=== PATIENT | female | born 2000 | race Caucasian/White ===

== ENCOUNTER 2022-02-23 09:39 | Outpatient (REF) | payer MEDICAID, SELFPAY ==
[2022-02-23 11:17] LABS: HBsAGNum1 0.21 S/CO (0.00-0.99); HIV AB/AG Nonreactive (Nonreactive); HIV Num 1 0.12 S/CO (0.00-0.99); Hepatitis B Surface Antigen Negative (Negative); ~HepC Num1 0.09 S/CO (0.00-0.79); ~Hepatitis C Antibody Nonreactive (Nonreactive)
[2022-02-23 12:40] LABS: Syphilis Screen Nonreactive (Nonreactive)
[2022-02-23 13:53] LABS: CT PCR NOT DETECTED (Not Detect.); NG PCR NOT DETECTED (Not Detect.)
[2022-02-24 09:20] LABS: BV Int Neg Control Negative (Negative); BV Int Pos Control Positive (Positive)
== END 2022-02-23 09:40 | disposition home or self-care (01) ==
LOC: HO.LAB 09:39
PROVIDERS: PCP Nurse Practitioner Pediatrics; Visit Provider Advanced Practice Midwife
DX: Z01.419 Encounter for gynecological examination (general) (routine) without abnormal findings (principal); Z11.3 Encounter for screening for infections with a predominantly sexual mode of transmission; Z11.4 Encounter for screening for human immunodeficiency virus [HIV]; Z97.5 Presence of (intrauterine) contraceptive device
CPT/HCPCS: 86780; 86803; 87340; 87389; 87480; 87491; 87510; 87591; 87660

== ENCOUNTER 2023-01-20 11:49 | Outpatient (REF) | payer MEDICAID, SELFPAY ==
[2023-01-23 04:20] LABS: ~HepC Num1 0.11 S/CO (0.00-0.79); ~Hepatitis C Antibody Nonreactive (Nonreactive)
[2023-01-30 08:09] LABS: HIV RNA PCR Qn Log Copies NOT DETECTED
[2023-01-30 08:10] LABS: HIV RNA PCR Qn Copies NOT DETECTED
== END 2023-01-20 11:50 | disposition home or self-care (01) ==
LOC: HO.CHCLDS 11:49
PROVIDERS: Visit Provider Student in an Organized Health Care Education/Training Program
DX: Z00.00 Encounter for general adult medical examination without abnormal findings (principal); Z11.4 Encounter for screening for human immunodeficiency virus [HIV]
CPT/HCPCS: 36415; 86803; 87536; 87900

== ENCOUNTER 2023-07-25 19:18 | Outpatient (REF) | payer MEDICAID, SELFPAY ==
[2023-08-01 08:39] LABS: C. trachomatis RNA TMA NOT DETECTED (NOT DETECTED); N. gonorrhoeae RNA TMA NOT DETECTED (NOT DETECTED)
[2023-08-01 09:14] LABS: Trichomonas (NAAT) NOT DETECTED (NOT DETECTED)
== END 2023-07-25 19:19 | disposition home or self-care (01) ==
LOC: HO.HHCLNP 19:18
PROVIDERS: Visit Provider Advanced Practice Midwife
DX: Z12.4 Encounter for screening for malignant neoplasm of cervix (principal); Z11.3 Encounter for screening for infections with a predominantly sexual mode of transmission
CPT/HCPCS: 36415; 87491; 87591; 87661; 88142

== ENCOUNTER 2024-04-24 14:12 | Outpatient (REF) | payer MEDICAID, SELFPAY ==
--- NOTE | ~2024-04-24 | US_ITS ---
EXAMINATION: US PELVIS CLINICAL INFORMATION: Left adnexal mass seen on outside imaging, not provided. COMPARISON: None available. TECHNIQUE: Ultrasound of the pelvis is performed using both transabdominal and transvaginal transducers along with Doppler. Transvaginal imaging is performed due to inadequate visualization transabdominally. FINDINGS: Uterus: The uterus is anteverted and anteflexed. The uterus measures 8.0 x 3.0 x 4.4 cm. The double wall endometrial thickness is 4 mm. An intrauterine device is seen, properly situated within the endometrial canal. The uterus is smooth in contour and has normal myometrial echogenicity. No visible fibroid. Adnexa: Both ovaries are visualized. There is normal color flow to the adnexa. There is no ovarian torsion. There is a small amount of nonspecific free fluid within the cul-de-sac. Right ovary measures 4.7 x 2.2 x 3.9 cm, volume 20.4 mL. The right ovary contains a 2.6 cm benign, simple dominant follicle, for which no imaging follow-up is recommended. Left ovary measures 3.5 x 2.0 x 3.0 cm, volume 11.4 mL. US/US pelvic and transvaginal IMPRESSION: 1. No left adnexal mass is seen. 2. The right ovary contains a 2.6 cm benign, simple dominant follicle, for which no imaging follow-up is recommended. 3. An intrauterine device is seen, properly situated within the endometrial canal. Electronically signed by: Robert Estrada MD 04/25/2024 09:27 AM EDT
== END 2024-04-24 14:13 | disposition home or self-care (01) ==
LOC: HO.HMGCX 14:12
PROVIDERS: PCP Student in an Organized Health Care Education/Training Program; Visit Provider Advanced Practice Midwife
DX: N94.89 Other specified conditions associated with female genital organs and menstrual cycle (principal)
CPT/HCPCS: 76830; 76856

== ENCOUNTER 2024-09-12 09:26 | Outpatient (REF) | payer MEDICAID, SELFPAY ==
--- OUTSIDE RECORDS SUMMARY | 2024-09-12 10:18 | XMS_ITS | Encounter Summary ---
Author Organization [employer] Address [address] 7 [place] [address] Care Team Providers Care Plumbing Warehouse Helper Name Role Phone Catherine Bustillos MD Primary Care Provider [phone] Reason for Visit * Reason Onset Date Comments Referral 07/10/2024 Encounter Details Date Type Department Care Team ([facility] Contact Info) Description 07/10/2024 Telephone [facility] [address] [place] [address] Catherine Bustillos MD [address] [place] [address] Referral Social History Tobacco Use Types Packs/Day Years Used Date Smoking Tobacco: Never Smokeless Tobacco: Never Alcohol Use Standard Drinks/Week Comments Never 0 (1 standard drink = 0.6 oz pure alcohol) I drink probably once a year, not often at all. Depression Answer Date Recorded Patient Health Questionnaire-9 Score 0 01/20/2023 Housing Stability Answer Date Recorded What is your housing situation today? I have ellis orosco 05/07/[address] you li ve. Do you have problems with any of the following? None of the above 05/07/2024 Food Insecurity Answer Date Recorded Within the past 12 months, y ou worried that your food would run out before you got money to buy more: Never True 05/07/2024 Within the past 12 months,th e food you bought just didn't last and you didn't have enough money to get more: Never True 05/2024 Transportation Answer Date Recorded In the past 12 months, has l ack of transportation kept you from medical appts, meetings, work or from getting things needed for daily living? No 05/07/2024 Utilities Answer Date Recorded In the past 12 months, has t he electric, gas, oil or water company threatened to shut off services in your home? No 05/07/2024 Depression Answer Date Recorded Patient Health Questionnaire-2 Score 0 01/20/2023 Internet Access Answer Date Recorded Internet Access Q1 Yes 05/07/2024 Internet Access Q2 Not on file 05/07/2024 Comments No Sex and Gender Information Value Date Recorded Sex Assigned at Female 04/25/2022 10:23 AM EDT Legal Sex Female 10:23 AM EDT Gender Identity Female 04/25/2022 10:23 AM EDT Sexual Orientation Bisexual 04/25/2022 10 :23 AM EDT documented as of this encounter Miscellaneous Notes * Telephone Encounter - Chayito Gay RN - 07/11/2024 10:07 AM EST Attempted to contact patient. Message left. * Telephone Encounter - Mariela Lawson - 07/10/2024 11:33 AM EST Tc from pt stating called to podiatry facility and they didn't received the referral. documented in this encounter Plan of Treatment Not on file documented as of this encounter Visit Diagnoses Not on filedocumented in this encounter Additional Health Concerns Assessment Noted Time PHQ-9 Depression Total Score: 0 01/21/20 23 10:57 AM EDT documented as of this encounter Care Teams Plumbing Warehouse Helper Relationship Specialty Start Date End Date Catherine Bustillos MD [address] [place] [phone] PCP - General Family Medicine 06/30/21 documented as of this encounter
--- OUTSIDE RECORDS SUMMARY | 2024-09-12 10:18 | XMS_ITS | Encounter Summary ---
Author Organization [employer] Address [address] [facility] 7 [place] [address] Care Team Providers Care An Employee Sponsor Or Advocate And Name Role Phone Catherine Bustillos MD Primary Care Provider [phone] Encounter Details Date Type Department Care Team ([facility] st Contact Info) Description 09/12/2024 9:00 AM EDT Immunization [facility] [address] [place] [address] Hilda Mireles RN Encounter for immunization; Screening for tuberculosis Social History Tobacco Use Types Packs/Day Years [...] AM EDT documented as of this encounter Progress Notes * Hilda Mireles RN - 09/12/2024 9:00 AM EDT Subjective Patient ID: Jeronimo Kincaid is a 24 y.o. female who presents for TDaP and Flu Vaccine. Pt here for TDaP and Flu vaccine. Per record and patient reporting indicate that patient has no allergies that contraindicate today's vaccinations. Vaccine administered in [facility]. Pt tolerated well, pt will stay for observation for 15minutes post vaccination for observation by nurse. documented in this encounter Plan of Treatment Scheduled Orders Name Type Priority Associated Diagnoses Orde r Schedule T-SPOT??.TB Lab Routine Screening for tuberculosis Expected: 09/12/2024 (Approximate), Expires: 09/12/2025 documented as of this encounter Visit Diagnoses Diagnosis Encounter for immunization Screening for tuberculosis Screening examination for pulmonary tuberculosis documented in this encounter Additional Health Concerns Assessment Noted Time PHQ-9 Depression Total Score: 0 01/21/20 10:57 AM EDT documented as of this encounter Care Teams An Employee Sponsor Or Advocate And Relationship Specialty Start Date End Date Catherine Bustillos MD [address] [place] [id number] PCP - General Family Medicine 06/30/21 documented as of this encounter
--- OUTSIDE RECORDS SUMMARY | 2024-09-12 10:18 | XMS_ITS | Clinical Summary ---
Author Organization [address] [facility] Jesus [facility] Address [address] [place] [address] Phone Care Team Providers Care Kindergarten Aide Name Role Phone Catherine Bustillos MD Primary Care Provider [phone] Active Problems Problem Noted Date Diagnosed Date Chronic neck and back pain 08/01/2024 Intertrigo 11/30/2020 Macromastia 09/07/2020 Overview (08/01/2024): Plastic Surgery referral/consult Immunizations Name Administration Dates Next Due Hepatitis B (Vtzfzaf-K-Rgzgh , Recombivax HB-Adult) 19yo and older 05/27/2010 Influenza trivalent, with pr eservative (Fluzone; Afluria) 6mo and older 05/26/2020 Medical History Medical History Date Comments Macromastia 09/07/2020 DX:Macromastia; COMMENT: Plastic Surgery referral/consult Chronic neck and back pain DX:Ch ronic neck and back pain Family History Relation Name Status Comments Father Alive Mother Alive Social History Tobacco Use Types Packs/Day Years Used Date Smoking Tobacco: Never Smokeless Tobacco: Never Alcohol Use Standard Drinks/Week Comments No 0 (1 standard drink = 0.6 oz pur e alcohol) Comments Unknown Sex and Gender Information Value Date Recorded Sex Assigned at Not on file Legal Sex Female 10:57 PM EST Gender Identity Not on file Sexual Orientation Not on file Obstetrics History Plan of Treatment Upcoming Encounters Date Type Department Care Team ([facility] Contact Info) Description 09/19/2024 9:30 AM EDT Consult Orthopedic Surgery - [place] [address] [id number] Damion Rouse, DPM [address] [address] Health Maintenance Due Date Last Done Comments Gonorrhea/Chlamydia Screening 2002 Hepatitis B Vaccines (2 of 3 - 3-dose series) 06/24/2010 05/27/2010 HPV Vaccines (1 - 3-dose series) 2017 Meningococcal B Vacine (1 of 2 - Standard) 2018 DTaP,Tdap,and Td Vaccines (1 - Tdap) 2021 Cervical Cancer Screening: P ap Smear 2023 COVID-19 Vaccine (1 - 2023-2 5 season) 2024 Influenza Vaccine (#1) 2024 05/26/2020 Depression Screening 07/31/2024 HIV Screening 07/31/2024 Hepatitis C Screening 07/31/2024 Social Influencers of Health Screening 07/31/2024 HIB Vaccines Aged Out No longer eligi ble based on patient's age to complete this topic Hepatitis A Vaccines Aged Out No long er eligible based on patient's age to complete this topic IPV Vaccines Aged Out No longer eligi ble based on patient's age to complete this topic MMR Vaccines Aged Out No longer eligi ble based on patient's age to complete this topic Meningococcal ACWY Vaccine Aged Out N o longer eligible based on patient's age to complete this topic Pneumococcal Vaccine: Pediat rics (0 to 5 Years) and At-Risk Patients (6 to 64 Years) Aged Out No longer eligi ble based on patient's age to complete this topic RSV Immunization Patients Un maría elena 20 months Aged Out No longer eligible b ased on patient's age to complete this topic Varicella Vaccines Aged Out No longer eligible based on patient's age to complete this topic Insurance MEDICAID - [place] Care Teams Kindergarten Aide Relationship Specialty Start Date End Date Catherine Bustillos MD [address] [place] [phone] PCP - General Family Medicine 07/31/24
--- OUTSIDE RECORDS SUMMARY | 2024-09-12 10:18 | XMS_ITS | Clinical Summary ---
Author Organization [employer] Address [address] [facility] 7 [place] [address] Care Team Providers Care Soccer Ball Assembler Name Role Phone Catherine Bustillos MD Primary Care Provider [phone] Allergies No known active allergies Medications albuterol (ProAir HFA) 108 (90 Base) MCG/ACT inhaler Inhale 2 puffs every 4 (four) hours. 18 g 3 4 Active terbinafine (LamISIL AT) 1 % cream Apply topically 2 times daily. 15 g 3 4 Active Hospital, Clinic, or Other Facility Administered Medication Ordered Dose Route Frequency Start Date End Date Status lidocaine 2 % gelIndications:Encounter for IUD insertion TOP As needed 04/17/2024 Active Active Problems Problem Noted Date Diagnosed Date Asthma 05/16/2024 Chronic neck and back pain 05/16/2024 Intertrigo 11/30/2020 Macromastia 09/07/2020 Overview (05/16/2024): Plastic Surgery referral/consult Encounters Date Type Department Care Team Description 09/12/2024 9:00 AM EDT Immunization [facility] [address] [place] [phone] Hilda Mireles RN Encounter for immunization; Screening for tuberculosis 09/11/2024 Telephone [facility] [address] [place] [address] Catherine Bustillos MD Record Request 09/11/2024 Travel 09/11/2024 Telephone [facility] [address] [place] [address] Catherine Bustillos MD Lab Orders 09/06/2024 Population Health Risk Score [facility] ([facility]) Department [address] [place] [phone] Provider, Population Health Generic 07/10/2024 Telephone [facility] [address] [place] [address] Catherine Bustillos MD Referral 07/05/2024 2:00 PM EST Office Visit [facility] [address] [place] [address] Angelica Lynch Dental calculus (Primary Dx); Dental plaque; Tartar deposits on teeth 06/20/2024 Telephone [facility] [address] [place] [address] Angelica Lynch from Last 3 Months Immunizations Name Administration Dates Next Due DTaP 2002,2002,2002 DTaP, 5 pertussis antigens 11/02/2006,04/06/2004 HPV 9-Valent 05/05/2016,04/01/2015 HPV, Quadrivalent 01/01/2014 Hep A, ped/adol, 2 dose 08/24/2017,05/05/2016 Hep B, Unspecified 05/27/2010, 4,2002,04/27 HiB, unspecified 2002,2002, 3 Hib (HbOC) 04/06/2004 IPV 11/02/2006, 4,2002,07/16 Influenza Injectable Quadriv alant Preservative Free IIV4 MDCK 05/17/2021 Influenza Whole 04/22/2010 Influenza injectable quadriv alent preservative free 07/17/2023,05/26/2020,09/12/2018,08/24,03/30/2016,07/25/2012 Influenza, live, intranasal 04/22/2010 Influenza, seasonal, injecta ble, preservative free 09/12/2024,04/01/2015,06/01/2011 MMR 06/03/2003 MMRV 11/02/2006 Meningococcal ACWY, unspecified 01/01/2014 Meningococcal MCV4P ACYW-135 09/12/2018 PPD Test 05/21/2021 Pfizer Covid-19 Vaccine 12+ 07/17/2023 Pneumococcal Conjugate PCV 7 04/06/2004, 2002,2002,07/16 Tdap 09/12/2024,01/01/2014 Varicella 06/03/2003 Family History Medical History Relation Name Comments Asthma Father Paul Kincaid Jr. Relation Name Status Comments Father Paul Kincaid Jr. Social History Tobacco Use Types Packs/Day Years Used Date Smoking Tobacco: Never Smokeless Tobacco: Never Tobacco Cessation:Counseling Given: Not Answered Alcohol Use Standard Drinks/Week Comments Never 0 (1 standard drink = 0.6 oz pure alcohol) I drink probably once a year, not often at all. Depression Answer Date Recorded Patient Health Questionnaire-9 Score 0 01/20/2023 Housing Stability Answer Date Recorded What is your housing situation today? I have ellis ana luisa 05/07/[address] you li [...] Orientation Bisexual 04/25/2022 10 :23 AM EDT Last Filed Vital Signs Vital Sign Reading Time Taken Comments Blood Pressure 130/86 07/05/2024 1:59 PM EST Pulse 66 05/20/2024 10:45 AM EST Temperature 35.8 ??C (96.4 ??F) 05/20/2024 10:[address] Respiratory Rate 20 05/20/2024 10:45 AM EST Oxygen Saturation 98% 05/20/2024 10:45 AM EST Inhaled Oxygen Concentration - - Weight 46 kg (101 lb 6.4 oz) 05/20/2024 10:45 AM EST Height 154.9 cm (5' 1 ) 05/20/2024 10:45 AM EST Body Mass Index 19.16 05/20/2024 10:45 AM EST Plan of Treatment Health Maintenance Due Date Last Done Comments Alcohol/Substance Use Screening 2014 Pneumococcal Vaccine: Pediatrics (0 to 5 Years) and At-Risk Patients (6 to 49) Years) (1 of 2 - PCV) 2021 04/06/2004, 2002, 2002, Additional history exists Depression Screening 01/21/2024 01/20/2023, 01/21/20 23 COVID-19 Vaccine ( season) 2024 07/17/2023, 04/12/2021, 03/15/2021 Chlamydia and Gonorrhea Screening 07/25/2024 07/25/2023, 05/26/2020 Dental Oral Exam 09/09/2024 03/11/2024, 05/2022, 05/10/2016, Additional history exists Dental Prophylaxis 09/09/2024 03/11/2024, 0 01/04/2022, 05/10/2016, Additional history exists Dental X-Ray: Bitewings 03/12/2025 03/11/20 24, 01/04/2022, 11/10/2015, Additional history exists SDOH Screening 05/07/2025 05/07/2024 Family Planning (PISQ) 05/20/2025 05/20/2024 Tobacco Screening 07/05/2025 07/05/2024 Pap Smear 07/25/2026 07/25/2023, 07/25/2023 Dental X-Ray: Full Mouth 03/12/2027 03/11/2024 DTaP/Tdap/Td Vaccines (8 - Td or Tdap) 09/12/2034 09/12/2024, 01/01/2014, 11/02/2006, Additional history exists Zoster Vaccines (1 of 2) 2052 RSV Patients and Patients Aged 60 years or older (1 - 1-dose 75+ series) 2077 HIB Vaccines Completed 04/06/2004, 11/24, 2002, Additional history exists IPV Vaccines Completed 11/02/2006, 12/25, 2002, Additional history exists Hepatitis B Vaccines Completed 05/27/2010, 01/20/2004, 2002, Additional history exists HPV Vaccines Completed 05/05/2016, 12/2014, 01/01/2014 Hepatitis A Vaccines Completed 08/24/2017, 05/05/20 16 Meningococcal Vaccine Completed 09/12/2018, 014 HIV Screening Completed 02/23/2022 Hepatitis C Screening Completed 01/20/2023, 022 Influenza Vaccine Completed 09/12/2024, , 05/17/2021, Additional history exists RSV under 20 months Aged Out No longe r eligible based on patient's age to complete this topic Rotavirus Vaccines Aged Out No longer eligible based on patient's age to complete this topic Procedures Procedure Name Priority Date/Time Associated Diagnosis Comments ORAL HYGIENE INSTRUCTIONS Routine 07/05/2024 2:00 PM EST Dental calculus Dental plaque Tartar deposits on teeth CASE PRESENTATION, DETAILED AND EXTENSIVE TREATMENT PLANNING Routine 07/05/2024 2:00 PM EST LR PERIODONTAL SCALING AND ROOT PLANING - 1 TO 3 TEETH PER QUADRANT Routine 07/05/2024 2:00 PM EST Dental calculus Dental plaque Tartar deposits on teeth PROPHYLAXIS - ADULT Routine 03/11/2024 1:00 PM EDT Dental calculus Dental plaque INTRAORAL - COMPLETE SERIES OF RADIOGRAPHIC IMAGES Routine 03/11/2024 1:00 PM EDT PERIODIC ORAL EVALUATION - ESTABLISHED PATIENT Routine 03/11/2024 1:00 PM EDT Dental calculus Dental plaque Encounter for dental examination IMAGE-GUIDED PAP W/AGE BASED SCR,W/CT/NG/TRICH Routine 07/25/2023 2:12 PM EST Cervical cancer screening Screening examination for venereal disease HEPATITIS C ANTIBODY REFLEX Routine 01/20/2023 11:57 AM EDT ZZZ HISTORICAL HEPATITIS B SURFACE ANTIGEN* Routine 02/23/2022 10:20 AM EDT from Last 3 Months or Most Recently Relevant to Health Maintenance Results * Image-Guided Pap with Age-Based Screening??with CT/NG,??Trichomonas (07/25/2023 2:12 PM EST) Trichomonas (NAAT) NOT DETECTED NOT DETECTED [facility] Comment:The analytical perfo rmance characteristics of thisassay have been determined by [employer]. Themodifications have not been cleared or approved bythe FDA. This assay has been validated pursuant to theCLIA regulations and is used for clinical purposes.For additional information, please refer tohttp://education.[employer]/faq/Trichomonastma(This link is being provided for information/educational purposes only.)THIS TEST WAS PERFORMED AT:[employer] [place] [phone] WINTER MD CTNG Ref Lab NOT DETECTED NOT DETECTED [facility] NG Ref Lab NOT DETECTED NOT DETECTED [facility] Pap Vial 07/25/2023 2:12 PM EST 07/27/2023 9:50 AM EST us [facility] CYTOLOGY ORDERABLES F inal Result [facility] [address] [place] [phone] * Hepatitis C Antibody Reflex (01/20/2023 11:57 AM EDT) Hepatitis C Antibody Nonreactive Nonreactive [facility] Comment:Antibodies to HCV no t detected; does not exclude early acuteHCV infection. 01/20/2023 11:5 7 AM EDT 01/20/2023 2:12 PM EDT Catherine Bustillos MD LAB BLOOD ORDERABLES Final Resul t [facility] [address] [place] [address] [phone] * HEPATITIS B SURFACE ANTIGEN* (02/23/2022 10:20 AM EDT) Pathologist [facility] Hepatitis B Surface Antigen Negative Negative [facility] Hepatitis C Antibody Nonreactive Nonreactive [facility] Comment: Antibodies to HCV not detected; does not exclude early acute HCV infection. HIV AB/AG Nonreactive Nonreactive [facility] Comment: HIV-1 p24 Ag and/or HIV-1/HIV-2 Ab not detected. ?? A test result that is nonreactive does not exclude the possibility of exposure to or infection with HIV-1 and/or HIV-2. Nonreactive results in this assay for individuals with prior exposure to HIV-1 and/or HIV-2 may be due to antigen and antibody levels that are below the limit of detection of this assay. ?? The [employer] HIV Ag/Ab Combo assay result and supplemental assay results should be interpreted in conjunction with the patient's clinical presentation, history and other laboratory results. ??If the results are inconsistent with clinical evidence, additional testing is suggested to confirm the result. 02/23/2022 10:2 0 AM EDT us Hilda Hawkins HISTORICAL/NON ORDERABLE LABS Fi nal Result [facility] [address] from Last 3 Months or Most Recently Relevant to Health Maintenance Insurance [facility] C3 HSN PARTIAL DENTAL-[facility] MEDICAID STAND ADULT Care Teams Soccer Ball Assembler Relationship Specialty Start Date End Date Catherine Bustillos MD [address] [place] [phone] PCP - General Family Medicine 06/30/21
--- OUTSIDE RECORDS SUMMARY | 2024-09-12 10:18 | XMS_ITS | Encounter Summary ---
Author Organization [employer] Address [address] [facility] 7 [place] [address] Care Team Providers Care Bench Mover Name Role Phone Catherine Bustillos MD Primary Care Provider [phone] Reason for Visit * Reason Onset Date Comments Lab Orders 09/11/2024 Encounter Details Date Type Department Care Team ([facility] Contact Info) Description 09/11/2024 Telephone [facility] [address] [place] [address] Catherine Bustillos MD [address] [place], [place] [phone] Lab Orders Social History Tobacco Use Types Packs/Day Years [...] encounter Miscellaneous Notes * Telephone Encounter - Dodie Briceño - 09/11/2024 10:25 AM EDT Tc from pt requesting vaccines order for work Tb Varicella Hepatitis B Influenza documented in this encounter Plan of Treatment Not on file documented as of this encounter Visit Diagnoses Not on filedocumented in this encounter Additional Health Concerns Assessment Noted Time PHQ-9 Depression Total Score: 0 01/21/20 23 10:57 AM EDT documented as of this encounter Care Teams Bench Mover Relationship Specialty Start Date End Date Catherine Bustillos MD [address] [place] [phone] PCP - General Family Medicine 06/30/21 documented as of this encounter
--- OUTSIDE RECORDS SUMMARY | 2024-09-12 10:18 | XMS_ITS | Encounter Summary ---
Author Organization [employer] Address [address] [facility] 7 [place] [address] Care Team Providers Care Inspector Set Up And Lay Out Name Role Phone Catherine Bustillos MD Primary Care Provider [phone] Reason for Visit * Reason Onset Date Comments Appointment Request 07/14/2023 Encounter Details Date Type Department Care Team ([facility] Contact Info) Description 07/14/2023 Telephone [facility] MEDICINE [address] [place] [address] Catherine Bustillos MD [address] [place] [address] Appointment Request Social History Tobacco Use Types Packs/Day Years Used Date Smoking Tobacco: Never Smokeless Tobacco: Never Alcohol Use Standard Drinks/Week Comments Never 0 (1 standard drink = 0.6 oz pur e alcohol) Depression Answer Date Recorded Patient Health Questionnaire-9 Score 0 01/20/2023 Housing Stability Answer Date Recorded What is your housing situation today? I have ellis orosco 05/01/[address] you li ve. Do you have problems with any of the following? None of the above 05/01/2023 Food Insecurity Answer Date Recorded Within the past 12 months, y ou worried that your food would run out before you got money to buy more: Never True 05/01/2023 Within the past 12 months,th e food you bought just didn't last and you didn't have enough money to get more: Never True 11/2022 Transportation Answer Date Recorded In the past 12 months, has l ack of transportation kept you from medical appts, meetings, work or from getting things needed for daily living? No 05/01/2023 Utilities Answer Date Recorded In the past 12 months, has t he electric, gas, oil or water company threatened to shut off services in your home? No 05/01/2023 Depression Answer Date Recorded Patient Health Questionnaire-2 Score 0 01/20/2023 Comments No Sex and Gender Information Value Date Recorded Sex Assigned at Female 04/25/2022 10:23 AM EDT Legal Sex Female 10:23 AM EDT Gender Identity Female 04/25/2022 10:23 AM EDT Sexual Orientation Bisexual 04/25/2022 10 :23 AM EDT documented as of this encounter Miscellaneous Notes * Telephone Encounter - Ly Valdivia CNM - 07/17/2023 2:14 PM EST Sounds good - thanks! * Telephone Encounter - Ly Valdivia CNM - 07/17/2023 8:07 AM EST Barrett Martinez - 30 minutes is correct for IUD insertion/replacement. However, Jeronimo's Liletta was inserted in 05/2019 and is effective for up to 8 years, so she is not due for replacement yet. She is welcome to keep appointment for IUD check and to discuss further. Thanks! * Telephone Encounter - Michelle Kearney RN - 07/14/2023 4:58 PM EST TC returned to patient. Patient states she is due for a new IUD. Has the liletta. Would like to schedule an IUD removal and insertion visit. Scheduled for a 30-minute procedure visit with Macy Valdivia on 08/01/23 @ 1:15pm. Could not reach out to provider coal and ash supervisorarea field manager to make sure this is the correct way to schedule this patient. Advised patient that we would call back if there is any need to adjust her appointment and otherwise we will see her then. Routing note to Macy Valdivia for her review to make sure this patient's appointment is scheduled correctly. * Telephone Encounter - Lilo Hathaway - 07/14/2023 12:43 PM EST Tc from pt requesting appt with OBGYN pt stated no concerns at the moment. documented in this encounter Plan of Treatment Not on file documented as of this encounter Visit Diagnoses Not on filedocumented in this encounter Additional Health Concerns Assessment Noted Time PHQ-9 Depression Total Score: 0 01/21/20 23 10:57 AM EDT documented as of this encounter Care Teams Inspector Set Up And Lay Out Relationship Specialty Start Date End Date Catherine Bustillos MD [address] [place] [id number] PCP - General Family Medicine 06/30/21 documented as of this encounter
--- OUTSIDE RECORDS SUMMARY | 2024-09-12 10:18 | XMS_ITS | Encounter Summary ---
Author Organization [employer] Address [address] [facility] 7 [place] [address] Care Team Providers Care Chute Puller Name Role Phone Catherine Bustillos MD Primary Care Provider [phone] Reason for Visit * Reason Onset Date Comments Record Request 09/11/2024 Encounter Details Date Type Department Care Team ([facility] Contact Info) Description 09/11/2024 Telephone [facility]C MED & PEDS [address] [place] [address] Catherine Bustillos MD [address] [place] [address] Record Request Social History Tobacco Use Types Packs/Day [...] is your housing situation today? I have ellisteena orosco 05/07/[address] you [...] encounter Miscellaneous Notes * Telephone Encounter - Shanna Garcia RN - 09/11/2024 10:58 AM EDT TC to pt. Pt requesting vaccine hx to take with her to her appointment in [place] tomorrow. Report printed and put at the front counter attendant in a envelope for pt to pathology supervisor Pt verbalized understanding and agreement with this plan. documented in this encounter Plan of Treatment Not on file documented as of this encounter Visit Diagnoses Not on filedocumented in this encounter Additional Health Concerns Assessment Noted Time PHQ-9 Depression Total Score: 0 01/21/20 23 10:57 AM EDT documented as of this encounter Care Teams Chute Puller Relationship Specialty Start Date End Date Catherine Bustillos MD [address] [place] [address] PCP - General Family Medicine 06/30/21 documented as of this encounter
--- OUTSIDE RECORDS SUMMARY | 2024-09-12 10:18 | XMS_ITS | Encounter Summary ---
Author Organization [employer] Address [address] [facility] 7t [place] [address] Care Team Providers Care Surgical Technologist Name Role Phone Catherine Bustillos MD Primary Care Provider [phone] Encounter Details Date Type Department Care Team (Latest Contact Info) Description 09/11/2024 Travel Social History Tobacco Use Types Packs/Day Years [...] AM EDT documented as of this encounter Plan of Treatment Not on file documented as of this encounter Visit Diagnoses Not on filedocumented in this encounter Additional Health Concerns Assessment Noted Time PHQ-9 Depression Total Score: 0 01/21/20 23 10:57 AM EDT documented as of this encounter Care Teams Surgical Technologist Relationship Specialty Start Date End Date Catherine Bustillos MD [address] [place] [address] PCP - General Family Medicine 06/30/21 documented as of this encounter
--- OUTSIDE RECORDS SUMMARY | 2024-09-12 10:18 | XMS_ITS | Clinical Summary ---
Author Organization [facility] Address [address] [place] [address] Phone Care Team Providers Care Special Education Resource Room Teacher Name Role Phone Unavailable Primary Care Provider Unavailabl e Immunizations Immunization Administration Dates Next Due DTaP 5 11/02/2006, 4,2002,2002 ,2002 Hep B, ped/adol 01/20/2004,2002,2002 Hib (HbOC) 04/06/2004 Hib (PRP-T) 2002,2002,2002 IPV 11/02/2006,01/20/2004,2002 ,2002 Influenza, intranasal, trivalent 04/22/2010 MMR 06/03/2003 MMRV 11/02/2006 Pneumococcal Conjugate 04/06/2004,2002,03/2003,2002 Varicella 06/03/2003 Family History Relation Name Status Comments Father Father: Allergi c rhinitis, Asthma Maternal Grandfather Materna l grandfather: Hyperlipidemia, Coronary artery disease, Hypertension Maternal Grandmother Materna l grandmother: Diabetes mellitus Mother Mother: Asthma, Allergic rhinitis Social History Tobacco Use Types Packs/Day Years Used Date Smoking Tobacco: Never Assessed Comments Unknown Sex and Gender Information Value Date Recorded Sex Assigned at Not on file Legal Sex Female 4:37 PM EDT Gender Identity Not on file Sexual Orientation Not on file Last Filed Vital Signs Vital Sign Reading Time Taken Comments Blood Pressure 78/48 04/22/2010 12:00 AM EDT Pulse - - Temperature 36.7 ??C (98.1 ??F) 10/07/2010 12:00 AM E DT Respiratory Rate - - Oxygen Saturation - - Inhaled Oxygen Concentration - - Weight 27.2 kg (60 lb) 10/07/2010 12:00 AM EDT Height 125.7 cm (4' 1.5 ) 04/22/2010 12:00 AM ED T Body Mass Index - - Plan of Treatment Health Maintenance Due Date Last Done Comments DTaP,Tdap,and Td Vaccines (6 - Tdap) 2013 11/02/2006, 04/06/2004, 2002, Additional history exists HPV Vaccines (1 - 3-dose series) 2017 Men B Vaccine (1 of 2 - Standard) 2018 Influenza Vaccines (#1) 2024 04/22/2010 COVID-19 Vaccine ( season) 2024 Hepatitis B Vaccines Completed 01/20/2004, 2002, 2002 HIB Vaccines Completed 04/06/2004, 11/24, 2002, Additional history exists Pneumococcal Vaccine Completed 04/06/2004, 2002, 2002, Additional history exists IPV Vaccines Completed 11/02/2006, 12/25, 2002, Additional history exists MMR Vaccines Completed 11/02/2006, 06/03/2003 Varicella Vaccines Completed 11/02/2006, 06/03/2003 Hepatitis A Vaccines Aged Out No long er eligible based on patient's age to complete this topic Meningococcal Vaccine Aged Out No letty phillip eligible based on patient's age to complete this topic
--- OUTSIDE RECORDS SUMMARY | 2024-09-12 10:18 | XMS_ITS | Encounter Summary ---
Author Organization [employer] Address [address] [facility] 7 [place] [address] Care Team Providers Care Pharmaceutical Botanist Name Role Phone Catherine Bustillos MD Primary Care Provider [phone] Encounter Details Date Type Department Care Team ([facility] st Contact Info) Description 11/08/2022 Telephone C [facility] [address] [place] [address] Lindy De La Fuente RN [address] [place] [address] Social History Tobacco Use Types Packs/Day Years Used Date Smoking Tobacco: Never Smokeless Tobacco: Never Comments Unknown Sex and Gender Information Value Date Recorded Sex Assigned at Female 04/25/2022 10:23 AM EDT Legal Sex Female 10:23 AM EDT Gender Identity Female 04/25/2022 10:23 AM EDT Sexual Orientation Bisexual 04/25/2022 10 :23 AM EDT COVID-19 Exposure Response Date Recorded In the last 10 days, have yo u been in contact with someone who was confirmed or suspected to have Coronavirus/COVID-19? No / Unsure 11/09/2022 8:56 AM EDT documented as of this encounter Miscellaneous Notes * Telephone Encounter - Lindy De La Fuente RN - 11/08/2022 10:58 AM EDT As noted in triage of 11/08 pt requesting PE with PCP. Will task to team [place] to follow up and schedule as appropriate. documented in this encounter Plan of Treatment Not on file documented as of this encounter Visit Diagnoses Not on filedocumented in this encounter Care Teams Pharmaceutical Botanist Relationship Specialty Start Date End Date Catherine Bustillos MD [address] [place] [address] PCP - General Family Medicine 06/30/21 documented as of this encounter
--- OUTSIDE RECORDS SUMMARY | 2024-09-12 10:18 | XMS_ITS | Encounter Summary ---
Author Organization [employer] Address [address] [facility] 7t [place] [address] Care Team Providers Care Slasher Machine Operator Name Role Phone Catherine Bustillos MD Primary Care Provider [phone] Encounter Details Date Type Department Care Team ([facility] st Contact Info) Description 09/06/2024 Population Health Risk Score [facility] (C3) Department [address] [place] [phone] Provider, Population Health Generic Social History Tobacco Use Types Packs/Day Years [...] documented as of this encounter Care Teams Slasher Machine Operator Relationship Specialty Start Date End Date Catherine Bustillos MD [address] [place] [address] PCP - General Family Medicine 06/30/21 documented as of this encounter
--- OUTSIDE RECORDS SUMMARY | 2024-09-12 10:18 | XMS_ITS | Encounter Summary ---
Author Organization [facility] Address [address] [place] [phone] Phone Care Team Providers Care Commercial Construction Estimator Name Role Phone Unavailable Primary Care Provider Unavailabl e Encounter Details Date Type Department Care Team (Late st Contact Info) Description 02/09/2017 Conversion Encounter [facility] - [address] [address] Social History Tobacco Use Types Packs/Day Years Used Date Smoking Tobacco: Never Assessed Comments Unknown Sex and Gender Information Value Date Recorded Sex Assigned at Not on file Legal Sex Female 4:37 PM EDT Gender Identity Not on file Sexual Orientation Not on file documented as of this encounter Plan of Treatment Not on file documented as of this encounter Visit Diagnoses Not on filedocumented in this encounter
--- OUTSIDE RECORDS SUMMARY | 2024-09-12 10:18 | XMS_ITS | Encounter Summary ---
Author Organization [facility] Address [address] [place] [phone] Phone Care Team Providers Care Puller Machine Name Role Phone Unavailable Primary Care Provider Unavailabl e Encounter Details Date Type Department Care Team (Late st Contact Info) Description 06/09/2011 Documentation [facility] Family Medicine [address] [place] [address] Family Medicine, Physician [facility] [place] [address] Social History Tobacco Use Types Packs/Day Years [...]
--- OUTSIDE RECORDS SUMMARY | 2024-09-12 10:18 | XMS_ITS | Encounter Summary ---
Author Organization [facility] Address [address] [place] [phone] Phone Care Team Providers Care Wine Steward/Stewardess Name Role Phone Unavailable Primary Care Provider Unavailabl e Encounter Details Date Type Department Care Team (Late st Contact Info) Description 11/29/2010 Documentation [facility] Family Medicine [address] [place] [address] Family Medicine, Physician [facility] [place] [address] Social History Tobacco Use Types [...]
== END 2024-09-12 09:27 | disposition home or self-care (01) ==
LOC: HO.HHCL 09:26
PROVIDERS: Visit Provider Internal Medicine
DX: Z11.1 Encounter for screening for respiratory tuberculosis (principal)
CPT/HCPCS: 36415; 86481